=== PATIENT | female | born 1935 | race Caucasian/White ===

== ENCOUNTER 2018-01-16 13:28 | Outpatient (CLI) | payer MEDICARE ==
[~2018-01-16 13:28] MED LIST: AMLO-93 PO; ASPI-1264 PO; BISO10TA PO; CETI-102 PO; CHOL100046 PO; CLON-529 PO; CYAN100097 PO; ESZO3TAB39 PO; IRON; LORA-269 PO; METO100T14 PO; METO25TA6 PO; OMEP20TA5 PO; [UNRECOGNIZED DRUG - OTHER]
== END 2018-01-16 23:59 | disposition home or self-care (01) ==
LOC: RAD 13:28
PROVIDERS: ATTEND Internal Medicine Gastroenterology
DX: R13.14 Dysphagia, pharyngoesophageal phase (principal); I10 Essential (primary) hypertension; Z79.82 Long term (current) use of aspirin; Z79.899 Other long term (current) drug therapy; Z90.710 Acquired absence of both cervix and uterus; Z87.891 Personal history of nicotine dependence
CPT/HCPCS: 74230

== ENCOUNTER 2018-02-26 12:25 | Outpatient (CLI) | payer MEDICARE ==
[~2018-02-26 12:25] MED LIST changes: -ESZO3TAB39 PO; +ESZO3TAB40 PO
== END 2018-02-26 23:59 | disposition home or self-care (01) ==
LOC: CARD DIAG 12:25
PROVIDERS: ATTEND Internal Medicine Cardiovascular Disease
DX: I08.3 Combined rheumatic disorders of mitral, aortic and tricuspid valves (principal); I48.91 Unspecified atrial fibrillation; R06.02 Shortness of breath; I10 Essential (primary) hypertension; Z90.710 Acquired absence of both cervix and uterus; Z87.891 Personal history of nicotine dependence; Z79.82 Long term (current) use of aspirin; Z79.899 Other long term (current) drug therapy
CPT/HCPCS: 93306

== ENCOUNTER 2024-08-19 18:13 | Emergency (ER) | payer MEDICARE, MEDICAID ==
[~2024-08-19] VITALS: Ht 152.4 cm; Wt 53.2 kg
[~2024-08-19 18:13] MED LIST changes: +AMLO-140 PO; -AMLO-93 PO; -BISO10TA PO; +BISO10TA16 PO; +CEFD300C3 PO; -CETI-102 PO; +CETI-90 PO; +LACT1CAP26 PO; +LOP25T PO; -METO25TA6 PO; +OMEP20TA43 PO; -OMEP20TA5 PO; +TOLT2CAP21 PO
[2024-08-19] MEDS ORDERED: CEFD300C17 PO (19:23)
[2024-08-19 19:41] LABS: BASOPHILS % (AUTO) 0.3 % (0-1); EOSINOPHILS # (AUTO) 0.3 X10'3 (0-0.9); EOSINOPHILS % (AUTO) 5.6 % (0-6); HEMATOCRIT 34.3 % (35.0-45.0); HEMOGLOBIN 11.4 g/dl (12.0-16.0); LYMPHOCYTES # (AUTO) 2.2 X10'3 (1.1-4.8); LYMPHOCYTES % (AUTO) 37.8 % (21-51); MEAN CORPUSCULAR HEMOGLOBIN 31.2 PG (27.0-31.0); MEAN CORPUSCULAR HGB CONC 33.2 g/dL (33.0-36.5); MEAN CORPUSCULAR VOLUME 94.2 FL (78-98); MEAN PLATELET VOLUME 7.2 FL (7.4-10.4); MONOCYTES # (AUTO) 0.5 X10'3 (0-0.9); NEUTROPHILS # (AUTO) 2.8 X10'3 (1.8-7.7); NEUTROPHILS % (AUTO) 48.3 % (42-75); PLATELET COUNT 242 X10'3 (140-440); RED BLOOD COUNT 3.64 X10'6 (4.20-5.60); RED CELL DISTRIBUTION WIDTH 13.9 % (11.5-14.5); WHITE BLOOD COUNT 5.8 X10'3 (4.5-11.0)
[2024-08-19 19:46] LABS: UA COLLECTION TYPE NON-SPECIFIED
[2024-08-19 19:47] LABS: CLARITY,URINE BLOODY (Clear); COLOR,URINE RED (Yellow)
[2024-08-19 19:48] LABS: BACTERIA,URINE FEW /HPF (Neg); RBC,URINE TNTC /HPF (0-2); SQUAMOUS EPITHELIAL CELL,UR FEW /LPF (FEW)
[2024-08-19 19:55] LABS: ALANINE AMINOTRANSFERASE 18 U/L (12-78); ALBUMIN 3.1 G/DL (3.4-5.0); ALBUMIN/GLOBULIN RATIO 0.8 (1.1-1.5); ALKALINE PHOSPHATASE 100 IU/L (46-116); ANION GAP 9 (8-16); ASPARTATE AMINO TRANSFERASE 23 U/L (10-37); BILIRUBIN,TOTAL 0.3 MG/DL (0.1-1.0); BLOOD UREA NITROGEN 11 MG/DL (7-18); BUN/CREATININE RATIO 12.6 (10.0-20.0); CALCIUM 9.4 MG/DL (8.5-10.1); CHLORIDE 101 MMOL/L (99-107); CREATININE 0.87 MG/DL (0.40-0.90); GLUCOSE 88 MG/DL (70-104); POTASSIUM 3.7 MMOL/L (3.5-5.1); SODIUM 136 MMOL/L (135-145); TOTAL CARBON DIOXIDE 25.7 MMOL/L (24-32); eCRCL 33 ML/MIN; eGFR 62 ML/MIN
[2024-08-19] MEDS: acetaminophen 325mg tablet PO ONE (20:51)
[2024-08-19] MEDS: ibuprofen tablet 400 MG TABLET PO ONE (20:51)
[2024-08-19] MEDS: BUPIVAcaine/PF 2.5 mg/ml (0.25%) 30ml vial IJ ONE (21:00)
[2024-08-19] MEDS: LidoCAINE 2% Topical Jelly 11mL syringe (UROJET) TOP ONE (21:27)
[2024-08-19 22:39] VITALS: BP 113/46; PULSE 85; RESP 14; TEMP 98.8; O2SAT 96
== END 2024-08-19 22:47 | disposition home or self-care (01) ==
LOC: ER 18:14
DX: N32.89 Other specified disorders of bladder (principal); I10 Essential (primary) hypertension; Z88.0 Allergy status to penicillin; Z88.1 Allergy status to other antibiotic agents; Z88.2 Allergy status to sulfonamides; Z88.5 Allergy status to narcotic agent; Z88.8 Allergy status to other drugs, medicaments and biological substances; Z90.49 Acquired absence of other specified parts of digestive tract; Z90.710 Acquired absence of both cervix and uterus; Z95.0 Presence of cardiac pacemaker
CPT/HCPCS: 36415; 51702; 51798; 80053; 81001; 85025; 87088; 99284; A4314; J3490; J7040; A4338; C1758